=== PATIENT | female | born 1985 | race Caucasian/White ===

== ENCOUNTER 2016-03-05 07:53 | Inpatient (IN) | payer OTHER ==
[~2016-03-05] VITALS: Ht 165.1 cm; Wt 81.8 kg
[2016-03-05] MEDS ORDERED: BUPIVACAINE 0.25% 30 ML VIAL ONE (08:29)
[2016-03-05] MEDS ORDERED: FENTANYL 2MCG/ML ROPIV 1.25MG/ML 100ML BAG EPI ONE (08:29)
[2016-03-05] MEDS ORDERED: EpHEDrine SULFATE INJ 50 MG/ML AMP ONE (08:29)
[2016-03-05] MEDS ORDERED: PENICILLIN G POTASSIUM IV 6 MU in DEXTROSE 5% 250ML 250 ML IV ONE (08:30)
[2016-03-05] MEDS ORDERED: PENICILLIN G POTASSIUM IV 3 MU in DEXTROSE 5% 100ML 100 ML IV PRN (08:30)
[2016-03-05] MEDS ORDERED: FENTANYL CITRATE INJ 50 MCG/1 ML 2 ML VIAL ONE (08:32)
[2016-03-05 08:52] LABS: HEMATOCRIT 39.2 % (37-47); MEAN CELL VOLUME 87.1 fL (80-100); MEAN CORPUSCULAR HEMOGLOBIN 30.4 pg (25-34); MEAN CORPUSCULAR HGB CONC 34.9 g/dl (32-36); MEAN PLATELET VOLUME 10.6 fL (7.4-10.4); PLATELET COUNT 220 K/uL (130-400); WHITE BLOOD COUNT 12.56 K/uL (4.8-10.8)
[2016-03-05] MEDS ORDERED: LACTATED RINGER'S 1000ML 500 ML IV PRN (09:34)
[2016-03-05] MEDS ORDERED: NALOXONE HCL INJ 1 MG in SODIUM CHLORIDE 0.9% 1000ML 1,000 ML IV PRN (09:34)
[2016-03-05] MEDS ORDERED: ONDANSETRON INJ 2 MG/ML 2 ML VIAL IV PRN (09:45)
[2016-03-05] MEDS ORDERED: DiphenhydrAMINE HCL 50 MG/ML VIAL IV PRN (09:45)
[2016-03-05] MEDS ORDERED: EpHEDrine SULFATE INJ 50 MG/ML AMP IV PRN (09:45)
[2016-03-05] MEDS ORDERED: NALOXONE HCL INJ 0.4 MG/1 ML VIAL/CARP IV PRN (09:45)
[2016-03-05] MEDS ORDERED: NALBUPHINE HCL INJ 10 MG/ML AMP IV PRN (09:45)
[2016-03-05] MEDS ORDERED: FENTANYL 2MCG/ML ROPIV 1.25MG/ML 100ML BAG EPI PRN (09:45)
[2016-03-05 10:01] VITALS: Ht 165.1 cm; Wt 81.8 kg
[2016-03-05] MEDS ORDERED: PEDICHW53 (10:48)
[2016-03-05] MEDS ORDERED: OXYTOCIN 30 UNITS/500ML NSS IV ONE (14:46)
[2016-03-05] MEDS ORDERED: BENZOCAINE 20% AER SPR 82.5 GM CAN EXT PRN (15:45)
[2016-03-05] MEDS ORDERED: OXYTOCIN 30 UNITS/500ML NSS IV PRN (15:45)
[2016-03-05] MEDS ORDERED: SUPERCREAM 0.870 % 15GM JAR EXT PRN (15:45)
[2016-03-05] MEDS ORDERED: LANOLIN OINT EXT PRN ×2 (15:45)
[2016-03-05] MEDS ORDERED: ACETAMINOPHEN/CODEINE 300/30MG TAB PO PRN (15:45)
[2016-03-05 17:50] VITALS: BP 141/67; PULSE 93; TEMP 37.5
[2016-03-05] MEDS: IBUPROFEN 600 MG TAB PO PRN ×2 (18:05→23:48)
--- NOTE | 2016-03-05 18:41 | Anesthesia Procedure Note ---
Anesthesia Epidural Removal Nt Date & Time Mar 05, 2016 at 18:41 Vital Signs Pain Intensity: 2 Notes Mental Status: alert / awake / arousable, participated in evaluation Nausea / Vomiting: adequately controlled Pain: adequately controlled Airway Patency, RR, SpO2: stable & adequate BP & HR: stable & adequate Hydration State: stable & adequate Neuraxial Anesthesia: was administered Anesthetic Complications: no major complications apparent, pt satisfied with anesthetic care Epidural: removed without complications, with tip intact
[2016-03-05] MEDS: DOCUSATE SODIUM 100 MG CAP PO SCH (20:55)
[2016-03-05] MEDS: ACETAMINOPHEN 325 MG TAB PO PRN (20:56)
[2016-03-05 23:40] VITALS: BP 114/72; PULSE 78; TEMP 36.5
--- NOTE | 2016-03-05 23:43 | DELIVERY SUMMARY ---
DATE OF OPERATION: 03/05/2016 The patient is a 31-year-old 1, P0 white female, EDC of 03/23/2016, who presented with spontaneous rupture of membranes at approximately 04:30 this morning. Regular contractions ensued after this, fluid was clear. On presentation to labor and delivery, she was 7 cm dilated. She received epidural analgesia and 2 doses of IV penicillin. She is group B strep positive. She pushed effectively over intact perineum for delivery of a viable female infant. Mouth and nasopharynx were suctioned on the perineum. The rest of the delivered without difficulty and was moving all 4 limbs and was crying vigorously. The was placed on the mother's abdomen for further attention. Cord was clamped and cut. Cord blood was obtained. The placenta then needed to be manually extracted as it was adherent to the fundus of the uterus. A banjo curette was used to ensure that the uterine cavity was free of any placental tissue or membranes. Manual exploration of the uterine cavity revealed no retained tissue. Uterus was contracted well and bleeding was minimal. A first degree left labial perineal laceration was repaired with 3-0 Vicryl and 4-0 Vicryl in the usual fashion. Estimated blood loss was 350 mL. Mother and were doing well after delivery. I attest to the content of the Intraoperative Record and any orders documented therein. Any exceptio ns are noted below.
[2016-03-06] MEDS: ACETAMINOPHEN/CODEINE 300/30MG TAB PO PRN ×2 (02:24→08:17)
[2016-03-06 03:56] VITALS: BP 116/80; PULSE 81; TEMP 36.5
[2016-03-06] MEDS: IBUPROFEN 600 MG TAB PO PRN ×4 (06:14→22:43)
--- NOTE | 2016-03-06 06:49 | Progress Note ---
Subjective Mar 06, 2016. Subjective conversation w/ patient, physical exam Ambulation: ambulating normally Voiding: no voiding problems Passing Gas: Yes Diet Tolerance: Regular Diet Lochia: Small Feeding Type: Bottle Feeding Pain: 4/10 pain well controlled with motrin Review of Systems Constitutional: No chills, No fever Respiratory: No cough, No shortness of breath Cardiac: No chest pain Breast: No breast pain Abdomen: No nausea, No pain, No vomiting Female : No dysuria Objective Vital Signs Date Time Temp Pulse Resp B/P Pulse Ox O2 Delivery O2 Flow Rate FiO2 03/06/16 03:56 36.5 81 18 116/80 Room Air 03/05/16 23:40 36.5 78 20 114/72 Room Air 03/05/16 23:40 36.5 78 20 114/72 Room Air 03/05/16 23:40 Room Air 03/05/16 23:40 Room Air 03/05/16 17:50 37.5 93 20 141/67 Room Air 03/05/16 17:50 Room Air Physical Exam General Appearance: WELL-APPEARING, WD/WN, NO APPARENT DISTRESS Respiratory/Chest: lungs clear, normal breath sounds Cardiovascular: regular rate, rhythm, no gallop, no murmur Abdomen: non tender, soft Fundus: Firm, Relation to Umbilicus (1cm below umbilicus) Extremities: no calf tenderness Laboratory Results Last 24 Hours Test 03/05/16 08:38 03/05/16 16:48 03/06/16 04:44 White Blood Count 12.56 K/uL Red Blood Count 4.50 M/uL Hemoglobin 13.7 g/dL Hematocrit 39.2 % Mean Corpuscular Volume 87.1 fL Mean Corpuscular Hemoglobin 30.4 pg Mean Corpuscular Hemoglobin Concent 34.9 g/dl RDW Standard Deviation 45.4 fL RDW Coefficient of Variation 14.2 % Platelet Count 220 K/uL Mean Platelet Volume 10.6 fL Amniotic Fluid Protein POS Medications Current Inpatient Medications Medications (Trade) Dose Ordered Sig/Mario Route Start Time Stop Time Status Last Admin Dose Admin Oxytocin (Pitocin IV) 30 units UD PRN IV 03/05/16 15:45 04/04/16 15:44 Benzocaine (Dermoplast Aero Spr) 1 appln PRN PRN EXT 03/05/16 15:45 04/04/16 15:44 03/05/16 20:56 1 APPLN Cocaine HCl (Supercream 0.870% Cr) BID PRN EXT 03/05/16 15:45 03/19/16 15:44 03/05/16 23:54 15 GM Lanolin (Lanolin Oint) PRN PRN EXT 03/05/16 15:45 04/04/16 15:44 Prenat Multivit/ [place]/Iron/Folic Ac ( Vitamin Tab) 1 tab DAILY PO 03/06/16 08:00 04/05/16 07:59 Ibuprofen (Motrin Tab) 600 mg Q4H PRN PO 03/05/16 15:45 04/04/16 15:44 03/06/16 06:14 600 MG Acetaminophen (Tylenol Tab) 650 mg Q6H PRN PO 03/05/16 15:45 04/04/16 15:44 03/05/16 20:56 650 MG Acetaminophen/ Codeine Phosphate (Tylenol w/ Codeine #3 Tab) 1 tab Q4H PRN PO 03/05/16 15:45 04/04/16 15:44 03/06/16 02:24 1 TAB Acetaminophen/ Codeine Phosphate (Tylenol w/ Codeine #3 Tab) 2 tab Q4H PRN PO 03/05/16 15:45 04/04/16 15:44 Bisacodyl (Dulcolax Tab) 5 mg 20 PO 03/06/16 20:00 03/06/16 20:01 Docusate Sodium (coLACE CAP) 100 mg BID PO 03/05/16 20:00 04/04/16 19:59 03/05/16 20:55 100 MG Assessment and Plan Post- Day#: 1 Continue Routine Care: Resident Physician Supervision Note: I interviewed and examined the patient. Discussed with Dr. Mendoza and agree with findings and plan as documented in the note. Any exceptions or clarifications are listed here: [None] Documented By: Tena Damian - Vital Signs reviewed and WNL (temp max 37.5) - Blood Type: A+, GBS+ , Rubella Immune - Patient doing well clinically - Encourage Ambulation today - No pain reported this morning - Tolerating PO Diet Well
[2016-03-06 07:00] LABS: HEMATOCRIT 34.3 % (37-47)
[2016-03-06 08:15] VITALS: BP 121/82; PULSE 85; TEMP 36.5
[2016-03-06] MEDS: PRENATAL VITAMIN TAB PO SCH (08:17)
[2016-03-06] MEDS: DOCUSATE SODIUM 100 MG CAP PO SCH ×2 (08:17→20:10)
[2016-03-06] MEDS ORDERED: DIPHTHERIA/TETANUS/PERTUSSIS 0.5 ML SYR/VIAL IM. ONE (08:30)
[2016-03-06 11:15] VITALS: BP 123/80; PULSE 89; TEMP 36.6
[2016-03-06 15:30] VITALS: BP 136/78; PULSE 97; TEMP 36.4; O2SAT 97
[2016-03-06] MEDS ORDERED: BISACODYL 5 MG TABEC PO SCH (20:00)
[2016-03-06] MEDS: ACETAMINOPHEN 325 MG TAB PO PRN (20:10)
[2016-03-07 00:05] VITALS: BP 118/81; PULSE 80; TEMP 36.5; O2SAT 97
[2016-03-07] MEDS: ACETAMINOPHEN/CODEINE 300/30MG TAB PO PRN (02:02)
[2016-03-07] MEDS: IBUPROFEN 600 MG TAB PO PRN ×3 (05:19→12:32)
--- NOTE | 2016-03-07 07:07 | Progress Note ---
Subjective Mar 07, 2016. Subjective conversation w/ patient, physical exam Ambulation: ambulating normally Voiding: no voiding problems Passing Gas: Yes Diet Tolerance: Regular Diet Lochia: Small Feeding Type: Bottle Feeding Pain: Vaginal swelling Review of Systems Constitutional: No chills, No fever Respiratory: No cough, No shortness of breath Cardiac: No chest pain Breast: No breast pain Abdomen: No nausea, No pain, No vomiting Female : No dysuria Objective Vital Signs Date Time Temp Pulse Resp B/P Pulse Ox O2 Delivery O2 Flow Rate FiO2 03/07/16 00:05 36.5 80 18 118/81 97 Room Air 03/07/16 00:05 97 Room Air 03/06/16 15:30 36.4 97 18 136/78 Room Air 03/06/16 15:30 97 Room Air 03/06/16 11:15 36.6 89 18 123/80 Room Air 03/06/16 08:15 Room Air 03/06/16 08:15 36.5 85 18 121/82 Room Air Physical Exam General Appearance: WELL-APPEARING, WD/WN, NO APPARENT DISTRESS Respiratory/Chest: lungs clear, normal breath sounds Cardiovascular: regular rate, rhythm, no gallop, no murmur Abdomen: non tender, soft Fundus: Firm, Relation to Umbilicus (1cm below umbilicus) Extremities: no calf tenderness Medications Current Inpatient Medications Medications (Trade) Dose Ordered Sig/Mario Route Start Time Stop Time Status Last Admin Dose Admin Oxytocin (Pitocin IV) 30 units UD PRN IV 03/05/16 15:45 04/04/16 15:44 Benzocaine (Dermoplast Aero Spr) 1 appln PRN PRN EXT 03/05/16 15:45 04/04/16 15:44 03/05/16 20:56 1 APPLN Cocaine HCl (Supercream 0.870% Cr) BID PRN EXT 03/05/16 15:45 03/19/16 15:44 03/05/16 23:54 15 GM Lanolin (Lanolin Oint) PRN PRN EXT 03/05/16 15:45 04/04/16 15:44 Prenat Multivit/ Supervisor Co[place]/Iron/Folic Ac ( Vitamin Tab) 1 tab DAILY PO 03/06/16 08:00 04/05/16 07:59 03/06/16 08:17 1 TAB Ibuprofen (Motrin Tab) 600 mg Q4H PRN PO 03/05/16 15:45 04/04/16 15:44 03/07/16 05:19 600 MG Acetaminophen (Tylenol Tab) 650 mg Q6H PRN PO 03/05/16 15:45 04/04/16 15:44 03/06/16 20:10 650 MG Acetaminophen/ Codeine Phosphate (Tylenol w/ Codeine #3 Tab) 1 tab Q4H PRN PO 03/05/16 15:45 04/04/16 15:44 03/07/16 02:02 1 TAB Acetaminophen/ Codeine Phosphate (Tylenol w/ Codeine #3 Tab) 2 tab Q4H PRN PO 03/05/16 15:45 04/04/16 15:44 Docusate Sodium (coLACE CAP) 100 mg BID PO 03/05/16 20:00 04/04/16 19:59 03/06/16 20:10 100 MG Assessment and Plan Post- Day#: 2 Continue Routine Care: - Vital Signs reviewed and WNL (temp max 36.6) - Blood Type: A+, GBS+ , Rubella Immune - Patient doing well clinically - Encourage Ambulation today - No pain reported this morning - Tolerating PO Diet Well - Discharge today Resident Physician Supervision Note: I interviewed and examined the patient. Discussed with Dr. Mendoza and agree with findings and plan as documented in the note. Any exceptions or clarifications are listed here: [None] Documented By: Homer Barrow
--- NOTE | 2016-03-07 07:09 | Discharge Instructions ---
Discharge Instructions Admission Reason for Admission: Check Labor Discharge Discharge Diagnosis / Problem: Vaginal Delivery Discharge Goals Goal(s): Routine recovery after delivery Medications Continue Dispensed Medications: supercream, dermaplast, tucks, lansinoh Activity Recommendations Activity Limitations: per Instructions/Follow-up section . Instructions / Follow-Up Instructions / Follow-Up ACTIVITY RECOMMENDATIONS: * Gradual return to full activity over the next 2-3 weeks. * No lifting - nothing heavier than baby over the next 2-3 weeks. * Do not engage in vigorous exercise, sexual activity or sports until cleared by your physician. * Do not drive or operate any motorized equipment until cleared by your physician. * You may shower/bathe daily. MEDICATIONS: For discomfort or pain, you may use Acetaminophen (Tylenol), Ibuprofen (Advil), or Naproxen (Aleve) following the package directions. For constipation you may use Colace following the package directions. BREAST CARE: If you are not breast feeding: * Wear a supportive bra 24 hours a day for one to two weeks. * Avoid stimulating your breasts and nipples as much as possible during the first few weeks after delivery. * When taking a shower, have the warm water hit your back, not breasts. * When your breasts feel full, apply ice packs. Usually three to four times a day helps ease the discomfort. * Take a mild pain medication (Tylenol / Motrin) when you are uncomfortable. If breast feeding: * Use breast milk to lubricate nipples. Lansinoh cream may be used for sore nipples. You do not need to remove cream prior to breast feeding. If using a different brand of cream, check the label for directions regarding removal of cream prior to nursing. * Wear a supportive bra. * If having problems with breasts or breast feeding, call a workforce consultant or your health care provider. EPISIOTOMY CARE: After delivery, if you have an episiotomy (stitches), the following steps will ease discomfort and aid healing. * For the first 24 hours after delivery, place ice packs next to your episiotomy to help reduce swelling. * After the first 24 hour-period, sitz baths, either portable or in the tub, are suggested. A shower with a shower arm sprayed over the episiotomy may be comforting. * Fauzia care should be done after each voiding and bowel movement. Squirt warm water from a plastic bottle over the perineum (region of the body between the anus and urinary opening) and pat dry. * Use Dermoplast to ease discomfort. Shake container. Meally directly over the episiotomy. Place a Tucks on a clean sanitary pad next to your episiotomy. SPECIAL CARE INSTRUCTIONS: When you are discharged from the hospital, it is important for you to follow the instructions listed below: * During the first week at home, you should be able to care for yourself and your baby. In addition, the usual light household activities are encouraged. * Limit your activities to the way you feel. Do not try to clean the house or move furniture. Be sensible. * If you actively engage in sports and have done so up until the time of your delivery, you may resume these activities as soon as you feel able. This may take up to one month or even longer. Use good judgment. * Continue to take your vitamins for at least six weeks after the of your baby. * Your diet need not be limited unless you were on a special diet before your delivery. Breast-feeding mothers need around 2500 calories per day and at least 64-80 ounces of fluid per day (8 to 10 glasses). * You should eat foods from the four major food groups. Crash diets or fad diets are to be avoided. Eating lean meats, fresh fruits and vegetables, low-fat dairy products, high fiber foods and a regular exercise program, will help you get back to your pre- weight without putting your health at risk. * Constipation is sometimes a problem after delivery. Take a mild laxative as needed. If breast feeding, Milk of Magnesia is acceptable to use. You may use a suppository or Fleets enema if no episiotomy. * A daily shower or tub bath is suggested. Be sure to thoroughly and gently dry the perineum. * A bloody vaginal discharge will usually continue until around four weeks post . A small amount of bleeding may continue for as long as six weeks. Vaginal discharge changes from the bright red bleeding after delivery to pink then brownish and finally yellowish-pink before becoming white and disappearing. * Bleeding may increase with activity. Your first period may come in 4-8 weeks. If you are breast feeding, your period may be delayed even longer. * [place] (sex) can begin whenever both you and your partner feel comfortable and do not have any form of genital infection. It is recommended that you wait at least six weeks for internal and external healing to occur. If you have questions, please talk to your health care practitioner. A condom should be used to prevent infection and . * Foreplay, gentle intercourse and lubrication is very important the first several times to prevent pain. A water-based lubricant such as K-Y jelly or Astroglide may be used. * If you have RH negative blood and your baby is RH positive, you will receive RHOGAM by injection prior to discharge. The nurse will give you a card to keep with you that has the date and place that you received RHOGAM after delivery. * During your care, you had a Rubella screen done to check for the presence of rubella antibodies in your blood. If your test was negative, you will receive a Rubella vaccine prior to discharge. This vaccine may cause a fever, soreness at the injection site and flu-like symptoms. If these symptoms persist, notify your health care practitioner. is not advised for one month after a Rubella vaccine. * Verbalizes understanding of car seat law as reviewed with patient nursing. * Car Seat hand-out given and reviewed with patient by nursing. * Shaken baby information reviewed with patient by nursing. Call you doctor if: * Heavy bleeding (saturating several pads an hour) or passing clots the size of your fist. * A fever >101 degrees F (38.3 degrees C) on two occasions four hours apart and /or chills. * Unusual pain in the pelvic or vaginal areas. * "Baby Blues" lasting longer than two weeks. If you have any questions or concerns, call your health care practitioner at . FOLLOW UP VISIT: * Please call the office at to schedule a 6 week examination. It is important you keep this appointment. It is important for you to make arrangements for either yearly or twice yearly check-ups thereafter. Current Hospital Diet Patient's current hospital diet: Regular OB Diet Discharge Diet Recommended Diet: Regular Diet Pending Studies Studies pending at discharge: no Medical Emergencies . Who to Call and When: Medical Emergencies: If at any time you feel your situation is an emergency, please call 911 immediately. . Non-Emergent Contact Non-Emergency issues call your: Therapist Rrt . . "Provider Documentation" section prepared by Charles Mendoza. VTE Core Measure Inpt VTE Proph given/why not?: Treatment not indicated
[2016-03-07 08:30] VITALS: BP 111/77; PULSE 70; TEMP 36.9; O2SAT 99
[2016-03-07] MEDS: DOCUSATE SODIUM 100 MG CAP PO SCH (08:52)
[2016-03-07] MEDS: PRENATAL VITAMIN TAB PO SCH (08:52)
[2016-03-07 13:36] VITALS: BP_DIAS 77; PULSE 70; TEMP 36.9
== END 2016-03-07 14:43 | disposition home or self-care (01) | DRG 775 ==
LOC: C.OPB 07:53 → C.LD 08:23 → C.OPB 08:23 → C.LD 09:08 → C.OBG 18:02 → EDSTATUS 03-23 07:52
PROVIDERS: ADMIT Obstetrics & Gynecology; ATTEND Obstetrics & Gynecology
PROC: 0HQ9XZZ Repair Perineum Skin, External Approach (ICD-10-PCS; principal; 2016-03-05)
PROC: 10E0XZZ Delivery of Products of Conception, External Approach (ICD-10-PCS; principal; 2016-03-05)
DX: O42.02 Full-term premature rupture of membranes, onset of labor within 24 hours of rupture (principal); Z37.0 Single live birth; O99.824 Streptococcus B carrier state complicating childbirth; O70.0 First degree perineal laceration during delivery; O99.334 Smoking (tobacco) complicating childbirth; F17.210 Nicotine dependence, cigarettes, uncomplicated; Z23 Encounter for immunization; Z3A.37 37 weeks gestation of pregnancy

== ENCOUNTER → 2016-09-12 | Outpatient (CLI) | payer OTHER ==
[~2016-09-12] MED LIST: PEDICHW53
[2016-09-12 10:22] LABS: BASO % 0.5 %; BASO ABS # 0.03 K/uL (0-0.2); COMPLETE YES; EOS % 0.3 %; HEMATOCRIT 44.9 % (37-47); IG% 0.2 %; LYMPH % 20.7 %; LYMPH ABS # 1.21 K/uL (1.2-3.4); MEAN CELL VOLUME 88.4 fL (80-100); MEAN CORPUSCULAR HEMOGLOBIN 28.9 pg (25-34); MEAN CORPUSCULAR HGB CONC 32.7 g/dl (32-36); MEAN PLATELET VOLUME 9.8 fL (7.4-10.4); MONO % 7.7 %; NEUT % 70.6 %; PLATELET COUNT 354 K/uL (130-400); RED BLOOD COUNT 5.08 M/uL (4.2-5.4); WHITE BLOOD COUNT 5.84 K/uL (4.8-10.8)
[2016-09-12 10:39] LABS: ALT/SGPT 26 U/L (12-78); BLOOD UREA NITROGEN 7 mg/dl (7-18); CALCIUM 9.6 mg/dl (8.5-10.1); CARBON DIOXIDE 28 mmol/L (21-32); CHLORIDE 103 mmol/L (98-107); CHOLESTEROL 264 mg/dl (0-200); CREATININE 0.98 mg/dl (0.60-1.20); GLUCOSE 88 mg/dl (70-99); POTASSIUM 3.7 mmol/L (3.5-5.1); SODIUM 139 mmol/L (136-145)
[2016-09-12 10:49] LABS: ALB/GLOB RATIO 1.2 (0.9-2); ALKALINE PHOSPHATASE 55 U/L (45-117); AST/SGOT 11 U/L (15-37); CHOLESTEROL/HDL RATIO 4.2; HDL CHOLESTEROL 63 mg/dl; LDL CHOLESTEROL CALCULATED 172 mg/dl; THYROID STIMULATING HORMONE 0.533 uIu/ml (0.300-4.500); TRIGLYCERIDES 143 mg/dl (0-150); VERY LOW DENSITY LIPOPROT CALC 29 mg/dl
[2016-09-12 11:38] LABS: ESTIMATED AVERAGE GLUCOSE 94 mg/dl; HA1C FLAG Normal (Normal)
== END | disposition home or self-care (01) ==
LOC: C.LAB 09:05
PROVIDERS: ATTEND Physician Assistant
DX: Z79.899 Other long term (current) drug therapy (principal)